=== PATIENT | female | born 1955 | race Caucasian/White ===

== ENCOUNTER 2019-01-28 06:51 | Day surgery (SDC) | payer MEDICARE, BC ==
[2019-01-28] MEDS: Polymyxin B/Trimethoprim 10 ML Bottle EYELF SCH ×4 (07:19→08:44)
--- NOTE | 2019-01-28 07:22 | PCM.PREANE ---
Preanesthetic Assessment - Anesthesia/Transfusion/Family Hx Anesthesia History: Prior Anesthesia Without Reaction Family History of Anesthesia Reaction: No Transfusion History: No Prior Transfusion(s) - Review of Systems General: No Symptoms Pulmonary: No Symptoms Cardiovascular: No Symptoms Gastrointestinal: No Symptoms Neurological: No Symptoms Other: Reports: None - Physical Assessment NPO Status Date: 01/27/19 NPO Status Time: 23:00 ASA Class: 2 Mental Status: Alert & Oriented x3 Airway Class: Mallampati = 1 Dentition: Reports: Normal Dentition Thyro-Mental Finger Breadths: 3 Mouth Opening Finger Breadths: 3 ROM/Head Extension: Full Lungs: Clear to Auscultation, Normal Respiratory Effort Cardiovascular: Regular Rate, Regular Rhythm - Allergies Allergies/Adverse Reactions: Allergies Allergy/AdvReac Type Severity Reaction Status Date / Time No Known Allergies Allergy Verified 01/27/19 11:55 - Anesthesia Plan Beta Diego: Metoprolol Med Last Dose Date: 01/27/19 Med Last Dose Time: 23:30 - Acknowledgements Anesthesia Type Planned: MAC Pt an Appropriate Candidate for the Planned Anesthesia: Yes Alternatives and Risks of Anesthesia Discussed w Pt/Guardian: Yes Pt/Guardian Understands and Agrees with Anesthesia Plan: Yes PreAnesthesia Questionnaire HEENT History: Reports: Cataract Cardiovascular History: Reports: Hypertension Respiratory History: Reports: None Gastrointestinal History: Reports: GERD Genitourinary History: Reports: Renal Calculus Musculoskeletal History: Reports: Arthritis Endocrine/Metabolic History: Reports: Diabetes, Type II (BS 213 @ 0726) - Past Surgical History HEENT Surgical History: Reports: Oral Surgery GI Surgical History: Reports: Colonoscopy - HOME MEDS Home Medications: Home Meds Aspirin 81 mg PO BEDTIME 01/27/19 [History] Lisinopril 5 mg PO BEDTIME 01/27/19 [History] Metoprolol Succinate 25 mg PO BEDTIME 01/27/19 [History] Simvastatin [Zocor] 40 mg PO BEDTIME 01/27/19 [History] SitaGLIPtin [Januvia] 100 mg PO BEDTIME 01/27/19 [History] metFORMIN HCl [Metformin HCl] 1,500 mg PO BEDTIME 01/27/19 [History] - CURRENT (IN HOUSE) MEDS Current Meds: Current Medications Brimonidine Tartrate (Alphagan 0.2% Oph Soln) 0 ml EYELF ASDIRECTED DONALD Stop: 01/28/19 18:00 Cefuroxime Sodium (Zinacef) 0 mg EYELF ASDIRECTED DONALD Stop: 01/28/19 18:00 Lidocaine HCl (Xylocaine-Mpf 1%) 1 ml INJECT ASDIRECTED DONALD Stop: 01/28/19 18:00 Phenylephrine HCl (Abhay-Synephrine 2.5% Ophth Soln) 0 ml EYELF ASDIRECTED DONALD Stop: 01/28/19 18:00 Pilocarpine HCl (Pilocar 4% Ophth Soln) 0 ml EYELF ASDIRECTED DONALD Stop: 01/28/19 18:00 Polymyxin/Trimethoprim Sulfate (Polytrim Ophth Soln) 0 ml EYELF ASDIRECTED DONALD Stop: 01/28/19 18:00 Tetracaine HCl (Tetracaine 0.5% Steri-Unit Perla) 0 ml EYELF ASDIRECTED DONALD Stop: 01/28/19 18:00 Tropicamide (Mydriacyl 1% Ophth Soln) 0 ml EYELF ASDIRECTED DONALD Stop: 01/28/19 18:00
[2019-01-28] MEDS: Brimonidine 0.2% Ophth Soln 5 ML Bottle EYELF SCH ×4 (07:23→08:44)
[2019-01-28] MEDS: Phenylephrine 2.5% Ophth Soln 2 ML Bot EYELF SCH ×5 (07:27→08:15)
[2019-01-28] MEDS: Tropicamide 1% Ophth Soln 15 ML Bottle EYELF SCH ×4 (07:31→08:00)
[2019-01-28] MEDS: Lidocaine 1% PF 2 ML SDV INJECT SCH ×2 (07:36→08:33)
[2019-01-28] MEDS: Cefuroxime 10 MG/ML SYRINGE EYELF SCH ×2 (07:36→08:43)
[2019-01-28] MEDS: Tetracaine HCl/PF 0.5% 4 ML Bottle EYELF SCH ×3 (07:36→08:32)
[2019-01-28] MEDS: Pilocarpine 4% Ophth Soln 15 ML Bot EYELF SCH ×2 (07:37→08:44)
--- NOTE | 2019-01-28 08:46 | PCM48HPAN ---
Post Anesthesia Note - EVALUATION WITHIN 48HRS OF ANESTHETIC Vital Signs in Normal Range: Yes Patient Participated in Evaluation: Yes Respiratory Function Stable: Yes Airway Patent: Yes Cardiovascular Function Stable: Yes Hydration Status Stable: Yes Pain Control Satisfactory: Yes Nausea and Vomiting Control Satisfactory: Yes Mental Status Recovered: Yes
== END 2019-01-28 08:55 | disposition home or self-care (01) ==
LOC: JD.SDS 06:51
PROVIDERS: ATTEND Ophthalmology
DX: E11.36 Type 2 diabetes mellitus with diabetic cataract (principal); H25.813 Combined forms of age-related cataract, bilateral; H16.103 Unspecified superficial keratitis, bilateral; H16.223 Keratoconjunctivitis sicca, not specified as Sjogren's, bilateral; H35.3132 Nonexudative age-related macular degeneration, bilateral, intermediate dry stage; H17.813 Minor opacity of cornea, bilateral; H02.834 Dermatochalasis of left upper eyelid; H02.831 Dermatochalasis of right upper eyelid; I10 Essential (primary) hypertension; E78.00 Pure hypercholesterolemia, unspecified; K21.9 Gastro-esophageal reflux disease without esophagitis; F41.9 Anxiety disorder, unspecified; N20.0 Calculus of kidney; Z83.518 Family history of other specified eye disorder; Z79.82 Long term (current) use of aspirin; Z79.84 Long term (current) use of oral hypoglycemic drugs; Z79.899 Other long term (current) drug therapy
CPT/HCPCS: 66984; 82962; C1780; J0697; J2001